=== PATIENT | male | born 1990 | race Caucasian/White ===

== ENCOUNTER 2023-09-18 01:00 | Emergency (ER) | payer SELFPAY ==
[2023-09-18 01:12] VITALS: BP 107/71; PULSE 92; RESP 16; TEMP 98.6; BMI 22.6
== END 2023-09-18 02:21 | disposition home or self-care (01) ==
LOC: FER 01:00
DX: S60.041A Contusion of right ring finger without damage to nail, initial encounter (principal); W50.0XXA Accidental hit or strike by another person, initial encounter; Y93.61 Activity, american tackle football
CPT/HCPCS: 73140-TC-RT-FY; 99283-25